=== PATIENT | female | born 1985 | race Caucasian/White ===

== ENCOUNTER 2017-05-11 10:27 | Emergency (ER) | payer OTHER ==
[~2017-05-11] VITALS: Ht 157.5 cm; Wt 85.7 kg
[~2017-05-11 10:27] MED LIST: TYLENOL #31 TAB PO
--- NOTE | 2017-05-11 11:21 | ED GENERAL ADULT ---
History of Present Illness General Chief Complaint: General Adult Stated Complaint: SIB MD CALZADA FOR DEHYDRATION? Source: patient Exam Limitations: no limitations Vital Signs & Intake/Output Vital Signs & Intake/Output Vital Signs Date Time Temp Pulse Resp B/P B/P Pulse O2 O2 Flow FiO2 Mean Ox Delivery Rate 05/11 1447 106/60 05/11 1358 97.2 73 16 88/48 99 Room Air 05/11 1233 97.3 73 16 97/65 100 Room Air 05/11 1039 97.5 94 20 111/77 99 Room Air Allergies Coded Allergies: metronidazole (Severe, N/V/D, HIVES, RASH 05/11/17) Reconcile Medications Nitrofurantoin Monohyd/M-Cryst (Macrobid 100 MG Capsule) 100 MG CAPSULE 1 CAP PO BID UTI with food Triage Note: PT SIB DR CLANCY FOR DEHYDRATION. PT STATES SHE IS 14 WEEKS AND HAS HAD DIARRHEA SINCE THE April. STATES SHE CAN'T EVEN KEEP WATER IN HER. PT HAS NOT EATEN ANYTHING TODAY. Triage Nurses Notes Reviewed? yes Onset: Gradual Duration: week(s): (3) Timing: no prior history Injury Environment: home Severity: moderate Severity Numbers: 6 No Modifying Factors: none : Yes Patient currently breastfeeds: No HPI: Patient is a 31-year-old female who is currently 14 weeks with her third child presenting to the emergency department complaining of diarrhea and has been going on for the past 3 weeks. Patient reports diarrhea daily approximately every 30-40 minutes if she eats or drinks anything. At this point she reports diarrhea is watery in nature. She gets cramping in her lower abdomen prior to onset of diarrhea. No recent travel. Denies change in diet or food intake. Denies recent antibiotic use. No sick contacts. Denies any fevers or chills. No chest pain palpitations shortness of breath. She has seen her MICROBIOLOGY PROFESSOR for similar symptoms since onset and they told her to take Kaopectate which has not helped. Denies any blood in the stool. She has not that her urine is darker in color, foul-smelling and is producing typically does cry count of diarrhea. Denies nausea or vomiting. Since It was not working and she called her MICROBIOLOGY PROFESSOR back who decided to tell her to go to the emergency department today for evaluation and IV hydration. (Juanis Lombardi) Past History Travel History Traveled to [place] past 21 day No Medical History Any Pertinent Medical History? see below for history Neurological: NONE EENT: NONE Cardiovascular: NONE Respiratory: NONE Gastrointestinal: NONE Hepatic: NONE Renal: NONE Musculoskeletal: SPINAL FUSION Psychiatric: NONE Endocrine: NONE Blood Disorders: NONE Cancer(s): NONE FARMWORKER MACHINE/Reproductive: NONE Surgical History Surgical History: non-contributory Psychosocial History What is your primary language Albanian Tobacco Use: Never used ETOH Use: denies use Illicit Drug Use: denies illicit drug use Family History Hx Contributory? No (Juanis Lombardi) Review of Systems Review of Systems Constitutional: Reports: no symptoms. Comments Review of systems: See HPI, All other systems negative. Constitutional, no chills fever or weight loss HEENT: No visual changes no sore throat no congestion Cardiovascular: No chest pain ,palpitation , orthopnea or ankle swelling Skin, no jaundice no rashes Respiratory: No dyspnea cough sputum or hemoptysis GI: No nausea no vomiting : No dysuria No hematuria Muscle skeletal: no back pain, no neck pain, Neurologic: No numbness no confusion no headches Psych: No stress anxiety or depression,. Heme/endocrine: No bruising no bleeding no polyuria or polydipsia Immunology: No splenectomy or history of AIDS (Juanis Lombardi) Physical Exam Physical Exam General Appearance: well developed/nourished, no apparent distress, alert, awake , comfortable Comments: Well-developed well-nourished person in no acute distress HEENT: Nose is atraumatic. Pharynx normal. No swelling or edema. Dry lips, slightly dry oral mucosa. Neck: Normal inspection Back: Nontender, no CVA tenderness. Cardiovascular: Regular rate and rhythms no murmurs rubs or gallops, normal JVP Respiratory: Chest nontender. No respiratory distress.breath sounds clear to auscultation bilaterally Abdomen: Soft, mildly tender to palpation in the Left lower quadrant without rebound or guarding, nondistended, no appreciable organomegaly. Normal bowel sounds. No ascites Extremity: No edema Neuro: Alert oriented x3 Skin: No appreciable rash on exposed skin, skin is warm and dry. Psych: Mood and affect is normal, memory and judgment is normal. Core Measures ACS in differential dx? No CVA/TIA Diagnosis: No Sepsis Present: No Sepsis Focused Exam Completed? No (Chika GALVEZ,Juanis) Progress Differential Diagnoses I considered the following diagnoses in my evaluation of the patient: Dehydration, electrolyte abnormality, acute kidney injury, C. difficile, nonspecific colitis, gallbladder dysfunction Plan of Care: Orders Procedure Date/time Status Add-on Test (ER Only) 05/11 1346 Active Add-on Test (ER Only) 05/11 1255 Active CULTURE,URINE 05/11 1128 Active CULTURE,STOOL 05/11 111 Active C.DIFFICILE 05/11 111 Active URINALYSIS 05/11 111 Complete MONOSPOT TEST 05/11 111 Complete LIPASE 05/11 111 Complete HUMAN BETA HCG TITRE 05/11 111 Complete COMPREHENSIVE METABOLIC PANEL 05/11 111 Complete CBC WITHOUT DIFFERENTIAL 05/11 1111 Complete Laboratory Tests 05/11/17 1137: Anion Gap 11, Estimated GFR > 60, BUN/Creatinine Ratio 12.5, Glucose 87, Calcium 8.8, Total Bilirubin 0.4, AST 16, ALT 31, Alkaline Phosphatase 82, Total Protein 6.8, Albumin 3.6, Globulin 3.2, Albumin/Globulin Ratio 1.1, Lipase 105, Beta HCG , Quant 44798.0, CBC w Diff NO MAN DIFF REQ, RBC 4.13 L, MCV 83.0, MCH 29.0, RDW 12.6, MPV 8.8, Gran % 67.5, Lymphocytes % 24.0, Monocytes % 7.7, Eosinophils % 0.5, Basophils % 0.3, Absolute Granulocytes 3.3, Absolute Lymphocytes 1.2, Absolute Monocytes 0.4, Absolute Eosinophils 0, Absolute Basophils 0, PUBS MCHC 34.9 05/11/17 1128: Urinalysis LIGHT H, Urine Color YEL, Urine Clarity HAZY H, Urine pH 6.5, Ur Specific [place] 1.025, Urine Protein TRACE H, Urine Ketones NEG, Urine Nitrite NEG, Urine Bilirubin NEG, Urine Urobilinogen 0.2, Ur Leukocyte Esterase TRACE H , Ur Microscopic SEDIMENT EXAMINED, Urine RBC 1-3, Urine WBC 3-5 H, Ur Epithelial Cells MANY H, Urine Bacteria MOD H, Granular Casts RARE H, Urine Mucus MANY H, Urine Hemoglobin TRACE-INTACT, Urine Glucose NEG 05/11/17 1112: Infectious [place] Titer NEGATIVE Microbiology 05/11 1127 URINE ROUT: Urine Culture - RECD 05/11 1112 STOOL: Clostridium difficile Toxin A & B - ORD 05/11 1112 STOOL: Stool Culture - ORD 05/11/2017 11:46:26 AM arrival patient is afebrile in no acute distress. She does have reproducible pain in the lower quadrant bilaterally. History of diarrhea several times a day for the past 3 weeks. She is currently 14 weeks . CBC, CMP, amylase and lipase ordered. Patient will go for abdominal ultrasound as well as viability secondary to abdominal discomfort. No complaints of vaginal bleeding. She's been drinking fluids including water and josie amy. IV fluids initiated. No episodes of diarrhea in the emergency. Patient given prescription to provide stool sample outpatient. Tolerating crackers without difficulty. Patient is slightly hypotensive which responded to the IV hydration. She'll follow-up with her primary care physician and GI. D/W Dr. Renner and he agrees with plan. Diagnostic Imaging: Viewed by Me: Ultrasound. Discussed w/RAD: Ultrasound. Radiology Impression: PATIENT: RETA GREEN PRESENT AGE: 31 PATIENT ACCOUNT NO: [id number] : 86 LOCATION: ER ORDERING PHYSICIAN: Juanis GALVEZ SERVICE DATE: 05/11/17 EXAM TYPE: US - US-COMPLETE ABDOMEN EXAMINATION: US ABDOMEN COMPLETE CLINICAL INFORMATION: Diarrhea. Assess for biliary process/acute abdominal process. COMPARISON: None. TECHNIQUE: Real-time imaging of the abdominal viscera. FINDINGS: PANCREAS: The visualized pancreatic head and body are normal in appearance. The remainder of the pancreas is obscured from visualization by the overlying bowel gas. ABDOMINAL AORTA: The proximal segment is normal in caliber. INFERIOR VENA CAVA: The visualized portions are normal. LIVER: The liver demonstrates normal size, contour and echogenicity. No focal lesion or intrahepatic biliary duct dilatation. GALLBLADDER: The gallbladder is physiologically distended without evidence of stones, sludge, polyps, wall thickening or pericholecystic fluid. No tenderness was elicited in the right upper quadrant. COMMON BILE DUCT: Normal in caliber measuring 0.3 cm in diameter. RIGHT KIDNEY: There is no hydronephrosis. There are no renal calculi or focal parenchymal lesions. The kidney measures 11.9 cm in maximum dimension. LEFT KIDNEY: There is no hydronephrosis. There are no renal calculi or focal parenchymal lesions. The kidney measures 11.6 cm in maximum dimension. SPLEEN: The spleen measures 13.5 cm in maximum dimension, slightly enlarged. FREE FLUID: None. IMPRESSION: 1. There is mild splenomegaly. 2. The remainder of the study is unremarkable. DICTATED BY: Leonidas Kong MD DATE/TIME DICTATED:05/11/171258 SENIOR RESEARCH MANAGER:RICKEY DATE/TIME TRANSCRIBED:05/11/171258 CONFIDENTIAL, DO NOT COPY WITHOUT APPROPRIATE AUTHORIZATION. <Electronically signed in Other Vendor System> SIGNED BY: Leonidas Kong MD 05/11/17 1307, PATIENT: RETA GREEN PRESENT AGE: 31 PATIENT ACCOUNT NO: [id number] : 86 LOCATION: [facility] ORDERING PHYSICIAN: Juanis GALVEZ SERVICE DATE: 05/11/17 EXAM TYPE: US - US-COMPLETE ABDOMEN EXAMINATION: US ABDOMEN COMPLETE CLINICAL INFORMATION: Diarrhea. Assess for biliary process/acute abdominal process. COMPARISON: None. TECHNIQUE: Real-time imaging of the abdominal viscera. FINDINGS: PANCREAS: The visualized pancreatic head and body are normal in appearance. The remainder of the pancreas is obscured from visualization by the overlying bowel gas. ABDOMINAL AORTA: The proximal segment is normal in caliber. INFERIOR VENA CAVA: The visualized portions are normal. LIVER: The liver demonstrates normal size, contour and echogenicity. No focal lesion or intrahepatic biliary duct dilatation. GALLBLADDER: The gallbladder is physiologically distended without evidence of stones, sludge, polyps, wall thickening or pericholecystic fluid. No tenderness was elicited in the right upper quadrant. COMMON BILE DUCT: Normal in caliber measuring 0.3 cm in diameter. RIGHT KIDNEY: There is no hydronephrosis. There are no renal calculi or focal parenchymal lesions. The kidney measures 11.9 cm in maximum dimension. LEFT KIDNEY: There is no hydronephrosis. There are no renal calculi or focal parenchymal lesions. The kidney measures 11.6 cm in maximum dimension. SPLEEN: The spleen measures 13.5 cm in maximum dimension, slightly enlarged. FREE FLUID: None. IMPRESSION: 1. There is mild splenomegaly. 2. The remainder of the study is unremarkable. DICTATED BY: Leonidas Kong MD DATE/TIME DICTATED:05/11/171258 SENIOR RESEARCH MANAGER:RICKEY DATE/TIME TRANSCRIBED:05/11/17 / 1259 CONFIDENTIAL, DO NOT COPY WITHOUT APPROPRIATE AUTHORIZATION. <Electronically signed in Other Vendor System> SIGNED BY: Leonidas Kong MD 05/11/17 1302 Initial ED EKG: none (Juanis Lombardi) Departure Departure Time of Disposition: 1443 Disposition: HOME OR SELF CARE Condition: Stable Clinical Impression Primary Impression: Diarrhea Qualifiers: Diarrhea type: unspecified type Qualified Code: R19.7 - Diarrhea, unspecified Secondary Impressions: Urinary tract infection Qualifiers: Urinary tract infection type: site unspecified Hematuria presence: without hematuria Qualified Code: N39.0 - Urinary tract infection, site not specified Referrals: Naveen BRICENO,Dano Liz (PCP/Family) Becky BRICENO,Shady Zheng Additional Instructions: Follow-up with gastroenterology regarding diarrhea if it persists. [place] diet. Increase fluids to stay hydrated. Return for worsening symptoms or concerns. Take Macrobid to help with UTI. Departure Forms: Customer Survey D/C INS-APPENDICITIS EXCLUSION General Discharge Information Prescriptions: Current Visit Scripts Nitrofurantoin Monohyd/M-Cryst (Macrobid 100 MG Capsule) 1 CAP PO BID #14 CAP with food (Juanis Lombardi) PA/KEY PERSON Co-Sign Statement Statement: ED Attending supervision documentation- [] I saw and evaluated the patient. I have also reviewed all the pertinent lab results and diagnostic results. I agree with the findings and the plan of care as documented in the PA's/KEY PERSON's documentation. [X] I have reviewed the ED Record and agree with the PA's/KEY PERSON's documentation. [] Additions or exceptions (if any) to the PAs/KEY PERSON's note and plan are summarized below: [] (Jud BRICENO,Sheldon Schwarz) Critical Care Note Critical Care Note Critical Care Time: non-applicable (Juanis Lombardi)
[2017-05-11 11:45] LABS: ABSOLUTE BASOPHIL COUNT 0 /CUMM (0.0-0.2); ABSOLUTE EOSINOPHIL COUNT 0 /CUMM (0.0-0.7); ABSOLUTE GRANULOCYTE CT 3.3 /CUMM (1.4-6.5); ABSOLUTE LYMPH COUNT 1.2 /CUMM (1.2-3.4); ABSOLUTE MONOCYTE COUNT 0.4 /CUMM (0.10-0.60); BASOPHIL % 0.3 % (0.0-2.0); EOSINOPHIL % 0.5 % (0-5); GRANULOCYTE % 67.5 % (42.2-75.2); HEMATOCRIT 34.3 % (37-47); MEAN CORPUSCULAR HGB CONC 34.9 G/DL (33.0-37.0); MEAN PLATELET VOLUME 8.8 FL (7.4-10.4); PLATELET COUNT 186 /CUMM (130-400); RBC DISTRIBUTION WIDTH 12.6 % (11.5-14.5); RED BLOOD CELL CT 4.13 /CUMM (4.20-5.40); WHITE BLOOD CELL COUNT 4.8 /CUMM (4.8-10.8)
--- NOTE | 2017-05-11 13:07 | ULTRASOUND REPORT ---
EXAMINATION: US ABDOMEN COMPLETE CLINICAL INFORMATION: Diarrhea. Assess for biliary process/acute abdominal process. COMPARISON: None. TECHNIQUE: Real-time imaging of the abdominal viscera. FINDINGS: PANCREAS: The visualized pancreatic head and body are normal in appearance. The remainder of the pancreas is obscured from visualization by the overlying bowel gas. ABDOMINAL AORTA: The proximal segment is normal in caliber. INFERIOR VENA CAVA: The visualized portions are normal. LIVER: The liver demonstrates normal size, contour and echogenicity. No focal lesion or intrahepatic biliary duct dilatation. GALLBLADDER: The gallbladder is physiologically distended without evidence of stones, sludge, polyps, wall thickening or pericholecystic fluid. No tenderness was elicited in the right upper quadrant. COMMON BILE DUCT: Normal in caliber measuring 0.3 cm in diameter. RIGHT KIDNEY: There is no hydronephrosis. There are no renal calculi or focal parenchymal lesions. The kidney measures 11.9 cm in maximum dimension. LEFT KIDNEY: There is no hydronephrosis. There are no renal calculi or focal parenchymal lesions. The kidney measures 11.6 cm in maximum dimension. SPLEEN: The spleen measures 13.5 cm in maximum dimension, slightly enlarged. FREE FLUID: None. IMPRESSION: 1. There is mild splenomegaly. 2. The remainder of the study is unremarkable.
--- NOTE | 2017-05-11 13:36 | ULTRASOUND REPORT ---
EXAMINATION: US , VIABILITY CLINICAL INFORMATION: Abdominal pain at 14 weeks of . Evaluate viability. COMPARISON: 09/19/2014 TECHNIQUE: Transabdominal imaging of the pelvis was performed. FINDINGS: Single viable intrauterine gestation is present. Normal activity is visualized. The heart rate is 170 bpm. Normal amniotic fluid volume is seen. There is a homogeneous, grade 0 anterior placenta without placental mass or periplacental hemorrhage. The cervical canal is closed and approximately 3.2 cm in length. The following measurements were obtained: Head circumference, 8.76 cm (14 weeks) Abdominal circumference, 7.77 cm (14 weeks, 2 days) Femur length, 1.38 cm (14 weeks, 1 day) Overall, the ultrasound determined gestational age is 14 weeks, 1 day with an estimated date of delivery of 11/08/2017. IMPRESSION: Single viable intrauterine gestation with ultrasound estimated age of 14 weeks, 1 day.
[2017-05-11] MEDS ORDERED: MACROBID 100 M100 MG PO (14:45)
[2017-05-11 14:47] VITALS: BP 106/60
== END 2017-05-11 14:58 ==
LOC: ERH 10:27
PROVIDERS: Physician Assistant
DX: O23.42 Unspecified infection of urinary tract in pregnancy, second trimester (principal); R19.7 Diarrhea, unspecified; Z3A.14 14 weeks gestation of pregnancy
CPT/HCPCS: 81001; 87045; 87086; 96360; 96361